=== PATIENT | female | born 1990 | race Caucasian/White ===

== ENCOUNTER 2019-12-01 12:12 | Emergency (ER) | payer OTHER, SELFPAY ==
--- NOTE | ~2019-12-01 | US_ITS ---
US breast LT complete 12/01/2019 13:27 Indication: HIV currently nursing. Mastitis. Patient on antibiotics. Procedure: High-resolution ultrasound of the left breast Comparison: No prior studies for comparison. Findings: In the subareolar location of the left breast there is a heterogeneous hypervascular area w ithout discrete mass or fluid collection, likely phlegmonous change. Impression: 1: No discrete mass or fluid collection. Poorly defined hypoechoic hypervascular area is noted in the subareolar region at the 9-10:00 position, likely phlegmonous change. Recommend follow-up ultrasound as clinically warranted. BI-RADS CATEGORY 2 - BENIGN FINDINGS Reviewed, dictated and finalized at location A. Impression: 1: No discrete mass or fluid collection. Poorly defined hypoechoic hypervascula r area is noted in the subareolar region at the 9-10:00 position, likely phlegm onous change. Recommend follow-up ultrasound as clinically warranted. BI-RADS CATEGORY 2 - BENIGN FINDINGS
[2019-12-01 12:14] VITALS: BP 120/64; PULSE 72; RESP 20; TEMP 36.6; O2SAT 100
[2019-12-01 12:56] LABS: Basophils Percent Auto 0.1 % (0.2-1.2); Eosinophils Absolute Auto 0.1 K/mm3 (0-0.3); Eosinophils Percent Auto 1.9 % (0-4.4); Hematocrit 44.2 % (37.0-47.0); Hemoglobin 14.8 g/dL (12.0-15.0); Immature Granulocyte Absolute 0.02 K/mm3 (0.00-0.031); Immature Granulocyte Percent A 0.3 % (0-0.5); Lymphocytes Absolute Auto 1.14 K/mm3 (0.9-3.2); Lymphocytes Percent Auto 15.7 % (18.3-44.2); Mean Corpuscular HGB Conc 33.5 g/dl (32-36); Mean Corpuscular Volume 95.5 fl (80-100); Mean Platelet Volume 10.1 fl (7.4-10.4); Monocytes Absolute Auto 0.7 K/mm3 (0.1-0.6); Monocytes Percent Auto 9.8 % (2.6-8.5); Neutrophils Absolute Auto 5.3 K/mm3 (1.3-6.7); Neutrophils Percent Auto 72.2 % (45.5-73.1); Platelet Count Result 207 k/mm3 (150-375); Red Blood Count 4.63 M/mm3 (4.2-5.4); Red Cell Distribution Width 12.3 % (11.5-14.5); White Blood Count 7.3 K/mm3 (4.5-10.0)
--- NOTE | 2019-12-01 13:01 | ED.SKABFB ---
HPI - Skin/Abscess/Foreign Bdy General Chief complaint: Skin/Abscess/Foreign Body Stated complaint: mastitis Time Seen by Provider: 12/01/19 12:19 Source: patient Mode of arrival: ambulatory Limitations: no limitations History of Present Illness HPI narrative: This is a 29 year old female that presents to the ER for left breast swelling x 3 days. Reports fever and erythema. Reports she has been on cephalexin with little relief. Denies drainage. Related Data Home Medications Medication Instructions Recorded Confirmed cephalexin 500 mg PO BID 12/01/19 12/01/19 Allergies Allergy/AdvReac Type Severity Reaction Status Date / Time gluten Allergy Intermediate Hives Verified 11/28/18 13:44 Penicillins Allergy Unknown Hives / Verified 11/28/18 13:35 Red Face Review of Systems Review of Systems: Narrative: CONSTITUTIONAL: Reports fever, chills BREAST: Reports edema and pain SKIN: Reports erythema All systems reviewed & are unremarkable except as noted in HPI and below PMFSH Past Medical History Medical History (Updated 12/01/19 @ 14:17 by Elizabeth Shay PA-C) History of depression Social History Social History (Updated 12/01/19 @ 13:40 by Elizabeth Shay PA-C) Smoking status: Never smoker Exam Narrative: Exam Narrative: GENERAL: Well-appearing, well-nourished, and in no acute distress. HEAD: Normocephalic, atraumatic. EYES: EOMI. EXTREMITIES: Normal range of motion. No edema. SKIN: Warm, dry, no rash. NEURO: No focal deficits. Alert and oriented x3. PSYCH: Normal mood and affect BREAST: Left breast with mild to moderate erythema and edema, tender to palpation Course Consultations Consultation #1: Spoke with Dr. Hannah about patient and work-up. If patient thinks she is improving a little bit then she is to finish out cephalexin. If patient believes she has not had much improvement we will switch to clindamycin. Date: 12/01/19 Time: 14:16 Vital Signs Vital signs: Vital Signs Temperature 97.9 F 12/01/19 12:14 Pulse Rate 72 12/01/19 12:14 Respiratory Rate 20 12/01/19 12:14 Blood Pressure 120/64 12/01/19 12:14 Pulse Oximetry 100 12/01/19 12:14 Temperature 97.9 F 12/01/19 12:14 Pulse Rate 70 12/01/19 13:49 Respiratory Rate 20 12/01/19 13:49 Blood Pressure 122/68 12/01/19 13:49 Pulse Oximetry 100 12/01/19 13:49 MDM - Skin/Abscess/Foreign Bdy MDM Narrative Medical decision making narrative: Patient presents emergency department for mastitis. Had been on 3 days of Keflex with little relief. She is afebrile and nontoxic-appearing. CBC without leukocytosis. ESR is normal. CRP is mildly elevated. Ultrasound of the breast shows no discrete mass or fluid collection to suggest abscess. She does have a phlegmonous change in the breast. Recommend follow-up ultrasound as needed. Spoke with Dr. Hannah about patient and work-up. If patient thinks she is improving a little bit then she is to finish out cephalexin. If patient believes she has not had much improvement we will switch to clindamycin. Patient would like to try different antibiotic to see if she gets relief. Patient will be started on oral clindamycin. Patient is stable and felt appropriate for further outpatient evaluation. She was given warnings to return to the ER Lab Data Attestation: I reviewed the patient's lab results. Result diagrams: 12/01/19 12:49 Labs: Lab Results 12/01/19 12/01/19 Range/Units 12:49 12:49 WBC 7.3 (4.5-10.0) K/mm3 RBC 4.63 (4.2-5.4) M/mm3 Hgb 14.8 (12.0-15.0) g/dL Hct 44.2 (37.0-47.0) % MCV 95.5 (80-100) fl MCH 32.0 (26-34) pg MCHC 33.5 (32-36) g/dl RDW 12.3 (11.5-14.5) % Plt Count 207 (150-375) k/mm3 MPV 10.1 (7.4-10.4) fl Immature Gran % (Auto) 0.3 (0-0.5) % Neut % (Auto) 72.2 (45.5-73.1) % Lymph % (Auto) 15.7 L (18.3-44.2) % [place] % (Auto) 9.8 H (2.6-8.5) % Eos % (Auto) 1.9 (0-4.4) %
[2019-12-01 13:35] LABS: Erythrocyte Sedimentation Rate 20 mm/hr (0-20)
[2019-12-01 13:39] LABS: CRP 3.5 mg/dL (<1.0)
[2019-12-01 13:49] VITALS: BP 122/68; PULSE 70; RESP 20; O2SAT 100
[2019-12-01 14:37] VITALS: BP 130/62; PULSE 80; RESP 20; O2SAT 99
== END 2019-12-01 14:39 | disposition home or self-care (01) ==
PROVIDERS: Physician Assistant; Emergency Provider Emergency Medicine
DX: N61.0 Mastitis without abscess (principal); F32.9 Major depressive disorder, single episode, unspecified
CPT/HCPCS: 36415; 76641; 85025; 85652; 86140; 99284

== ENCOUNTER 2020-10-29 10:27 | Emergency (ER) | payer OTHER, SELFPAY ==
--- NOTE | ~2020-10-29 | XR_ITS ---
EXAMINATION: XR toe 1st RT min 2V DATE: 10/29/2020 10:47 INDICATION: Right great toe injury. TECHNIQUE: 4 views of right great toe were obtained. COMPARISON: None. FINDINGS: Bone alignment is normal. There is an oblique intra-articular fracture of head of first pro ximal phalanx in near-anatomic alignment. Joint spaces are normal. IMPRESSION: 1. Nondisplaced oblique intra-articular fracture of head of first proximal phalanx. Reviewed, dictated and finalized at location A. IMPRESSION: 1. Nondisplaced oblique intra-articular fracture of head of first proximal phal anx.
[2020-10-29 10:32] VITALS: PULSE 64; RESP 16; TEMP 36.6; O2SAT 100
--- NOTE | 2020-10-29 10:35 | ED.LOWEXIN ---
HPI - Extremity Injury (Lower) General Chief Complaint: Extremity Injury, Lower Stated Complaint: rt big toe injury Time Seen by Provider: 10/29/20 10:35 Source: patient and RN notes reviewed Mode of arrival: ambulatory Limitations: no limitations History of Present Illness HPI Narrative: 29-year-old female presents to the [facility] with complaints of pain in the right great toe. Patient states that she had decreased range of motion and increased pain when she put on her sandal. Mild swelling noted, no bruising noted. Sensation intact distal to injury. Capillary refill under 2 seconds Related Data Allergies Allergy/AdvReac Type Severity Reaction Status Date / Time gluten Allergy Intermediate Hives Verified 11/28/18 13:44 Penicillins Allergy Unknown Hives / Verified 11/28/18 13:35 Red Face Review of Systems Review of Systems: All systems reviewed & are unremarkable except as noted in HPI and below Constitutional: Constitutional: Reports no additional constitutional complaints, Denies chills and Denies fever(s) Eyes: Eyes: Reports no additional eye complaints ENT: Reports system reviewed and no additional complaints, except as documented Cardiovascular: Cardiovascular: Reports no additional cardiovascular complaints and Denies chest pain Respiratory: Respiratory: Reports no additional respiratory complaints, Denies cough and Denies dyspnea Gastrointestinal: Gastrointestinal: Reports no additional gastrointestinal complaints Musculoskeletal: Musculoskeletal: Reports as per HPI Comments: Right great toe pain Integumentary/Breasts: Skin/Breast: Reports system reviewed and no additional complaints, except as docu, Denies pruritus and Denies rash Neurologic: Reports system reviewed and no additional complaints, except as documented, Denies focal weakness, Denies numbness and Denies weakness Psychiatric: Psychiatric: Reports no additional psychiatric complaints Allergic/Immunologic: Allergic/Immunologic: Reports no additional allergic/immunologic complaints PMFSH Past Medical History Medical History (Updated 10/29/20 @ 10:55 by Yennifer De Santiago) History of depression Social History Social History Smoking status: Never smoker Comments At the time of my signature, I reviewed and agree with the nursing past medical, surgical, social, and family history. There is no relevant family history pertinent to the patient complaint. Exam Const: General: healthy appearing, no acute distress and alert Nutritional Appearance: well nourished Orientation/consciousness: patient oriented x3 Limitations: no limitations HENMT: Head: normal to inspection Eyes: Pupils: Equal, round and reactive pupils present Neck: Neck: normal visual inspection, no lymphadenopathy and no meningeal signs Chest: Chest palpation & inspection: normal inspection of the chest Resp: Effort & Inspection: normal respiratory effort and no use of accessory muscles Auscultation: clear to auscultation bilaterally, no crackles, no rales, no rhonchi and no wheezes Cardio: Rate: regular rate Rhythm: regular rhythm Back/Spine/Pelvis: Back: no CVA tenderness Skin: General skin exam: normal color Rashes: no rashes Wounds: no wounds Neuro: General: patient oriented x3, moves all extremities and no meningeal signs Speech: normal speech Gait exam (Neuro): gait abnormal (Limp favoring right foot) Extrem: General: normal to inspection Ankle/foot/toe images: 1. Tenderness, decreased range of motion of both joints secondary to pain. Mild swelling without bruising, redness or increased warmth Psych: Appearance: grossly normal and well kempt Mental Status: mental status grossly normal Affect: normal affect Attitude: cooperative Thought content: Yes Normal thought content present Course Course Emergency Course: Discharge instructions reviewed with patient, as well as provided in writing pe
[2020-10-29 10:54] VITALS: BP 113/67
== END 2020-10-29 11:07 | disposition home or self-care (01) ==
PROVIDERS: Emergency Provider Nurse Practitioner; PCP Nurse Practitioner Adult Health
DX: S92.414A Nondisplaced fracture of proximal phalanx of right great toe, initial encounter for closed fracture (principal); X58.XXXA Exposure to other specified factors, initial encounter
CPT/HCPCS: 73660; 99214; G0463